=== PATIENT | male | born 1985 | race Caucasian/White ===

== ENCOUNTER 2023-08-03 20:47 | Emergency (ER) | payer SELFPAY ==
--- NOTE | 2023-08-03 21:00 | XRR_ITS ---
PROCEDURE INFORMATION: Exam: XR Right Ribs with PA Chest Exam date and time: 08/03/2023 9:52 PM Age: 38 years old Clinical indication: Painful respiration; Patient HX: RT ant rib/upper ext pain post fall TECHNIQUE: Imaging protocol: Radiologic exam of the right ribs with PA chest. Views: 3 views COMPARISON: CR (CHEST, ) 08/03/2023 9:39 PM FINDINGS: Lungs: Unremarkable. No consolidation. Pleural spaces: Unremarkable. No pleural effusion. No pneumothorax. Heart/Mediastinum: Unremarkable. No cardiomegaly. Bones/joints: Lateral clavicular oblique minimally displaced fracture, better seen on same-day clavicle radiograph. XR/XR ribs RT mn 3V w [id number] IMPRESSION: Lateral clavicular oblique minimally displaced fracture, better seen on same-day clavicle radiograph.
--- NOTE | 2023-08-03 21:00 | XRR_ITS ---
PROCEDURE INFORMATION: Exam: XR Right Shoulder Exam date and time: 08/03/2023 9:39 PM Age: 38 years old Clinical indication: Shoulder; Right; Patient HX: RT upper ext pain post fall TECHNIQUE: Imaging protocol: Radiologic exam of the right shoulder. Views: 2 or more views. COMPARISON: No relevant prior studies available. FINDINGS: Bones/joints: Lateral clavicular oblique minimally displaced fracture. Soft tissues: Normal. XR/XR shoulder RT min 2V* [id number] IMPRESSION: Lateral clavicular oblique minimally displaced fracture.
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
[2023-08-03] MEDS: ketorolac 60 mg/2 mL INJ IM (21:14)
[2023-08-03] MEDS: tetanus-dipt-pertussis 0.5 mL SDV IM (21:15)
--- NOTE | 2023-08-03 22:05 | XRR_ITS ---
PROCEDURE INFORMATION: Exam: XR Right Elbow Exam date and time: 08/03/2023 10:10 PM Age: 38 years old Clinical indication: Elbow; Right; Patient HX: RT ant rib/upper ext pain post fall TECHNIQUE: Imaging protocol: Radiologic exam of the right elbow. Views: 3 or more views. COMPARISON: CR (CHEST, ) 08/03/2023 9:39 PM FINDINGS: Bones/joints: Normal. Soft tissues: Normal. XR/XR elbow RT min 3V* [id number] IMPRESSION: No acute findings.
[2023-08-03 22:34] VITALS: RESP 25; O2SAT 98
--- NOTE | 2023-08-04 07:36 | DCPLANNER ---
Message was sent to ortho on 08/04 at 0736 . Clinic to contact patient.
== END 2023-08-03 22:34 | disposition home or self-care (01) ==
PROVIDERS: Emergency Provider Emergency Medicine
DX: S42.031A Displaced fracture of lateral end of right clavicle, initial encounter for closed fracture (principal); V00.131A Fall from skateboard, initial encounter; Z23 Encounter for immunization
CPT/HCPCS: 71101; 73030; 73080; 90471; 90715; 96372; 99284; J1885

== ENCOUNTER 2023-08-08 02:15 | Emergency (ER) | payer SELFPAY ==
[2023-08-08 02:38] VITALS: PULSE 116; RESP 18; TEMP 36.7; O2SAT 95; BMI 36.6
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
[2023-08-08] MEDS: doxycycline 100 mg Tablet PO (03:34)
[2023-08-08 03:43] VITALS: BP 144/111; PULSE 116; RESP 18; TEMP 36.7; O2SAT 95
== END 2023-08-08 03:56 | disposition home or self-care (01) ==
PROVIDERS: Emergency Provider Emergency Medicine
DX: L03.012 Cellulitis of left finger (principal)
CPT/HCPCS: 99284